=== PATIENT | male | born 1955 | race Caucasian/White ===

== ENCOUNTER 2023-01-07 14:35 | Outpatient (OUT) | payer OTHER, MEDICARE, SELFPAY ==
[2023-01-07 15:44] LABS: Free T4 1.25 ng/dL (0.76-1.46)
[2023-01-07 15:47] LABS: Thyroid Stimulating Hormone 0.017 uIU/mL (0.358-3.740)
== END 2023-01-07 14:36 | disposition home or self-care (01) ==
LOC: LAB 14:40
PROVIDERS: PCP Family Medicine; Visit Provider Otolaryngology
DX: E03.9 Hypothyroidism, unspecified (principal)
CPT/HCPCS: 36415; 84439; 84443

== ENCOUNTER 2023-01-13 12:18 | Day surgery (SDC) | payer OTHER, MEDICARE, SELFPAY ==
--- NOTE | 2023-01-13 12:25 | US_ITS ---
The [address] [address] Patient Name: ANDREA FOREMAN MRN: [id number] date: 1955 Sex: M Assigned Patient Location: [place] Current Patient Location: US Accession/Order Number: [id number] Exam Date: 01/13/2023 12:26 Report Date: 01/13/2023 15:32 At the request of: TOÑA ELY Procedure: US biopsy thyroid EXAMINATION: US biopsy thyroid HISTORY: Thyroid nodule COMPARISON: 12/26/22. TECHNIQUE: After obtaining informed consent, an ultrasound-guided biopsy was performed in the usual sterile manner. FINDINGS: IMAGING: Ultrasound BIOPSY NEEDLE: 25 ga, 2 inch SPECIMEN TYPE, #, LOCATION: 3 fine needle aspirates, 2.9 cm right thyroid nodule MEDICATION: 4 cc 1% lidocaine COMPLICATIONS: None. LABORATORY: Molecular studies and pathology OTHER: The second nodule on the previous outside institution ultrasound dated 12/26/2022 is felt to represent the trachea. US/US biopsy thyroid IMPRESSION: Uneventful ultrasound guided biopsy. The patient was instructed to obtain follow up care and biopsy results from the referring physician. Electronically authenticated by: BUTCH BARBER Date: 01/13/2023 15:32
[2023-01-13 12:35] VITALS: BP 130/78; PULSE 66; O2SAT 94
[2023-01-13] MEDS: LIDOCAINE HCL 10 ML, SODIUM BICARBONATE 1 MEQ INJ (13:30)
[2023-01-13 15:31] VITALS: BMI 38.6
--- NOTE | 2023-01-13 15:37 | PC.NURSE ---
1345 Pt became diaphoretic post biopsy and needed to sit up and he states that he feels really warm from his anxiety. Cool cloth provided to pt. Pt allowed to sit on side of bed for as long as possible before getting up. 1355 Pt states diaphoresis has subsided and feels similar to pre biopsy.
--- NOTE | 2023-01-13 15:40 | PC.NURSE ---
6135 Dr Kohli reviewed the us scan done today and concurs with RT that the larger nodule is normal anatomy and not a nodule. Dr Kholi texted Dr Napoles to notify him of this and that we will not biopsy that area.
== END 2023-01-13 14:00 | disposition home or self-care (01) ==
LOC: US 12:19
PROVIDERS: Radiology Diagnostic Radiology; PCP Family Medicine; Visit Provider Otolaryngology
DX: E04.1 Nontoxic single thyroid nodule (principal)
CPT/HCPCS: 10005; 88173